=== PATIENT | female | born 1995 | race Caucasian/White ===

== ENCOUNTER 2021-05-21 21:37 | Emergency (ER) | payer OTHER ==
[~2021-05-21 21:37] MED LIST: ACETAMINOPHEN500 M1 PO; AMOXICILLIN500 MG PO; BUPRENORPHIN-N1 EACH PO; CLEOCIN300 MG PO; EFFEXOR XR75 MG PO; IBUPROFEN800 MG PO; NEXPLANON68 MG SC; NORCO 5-325 TA1 EACH PO; OXCARBAZEPINE300 MG PO; PHENERGAN12.5 M1 PO
[2021-05-21] MEDS ORDERED: ONDANSETRON ODT4 MG PO (22:03)
== END 2021-05-21 22:08 | disposition home or self-care (01) ==
LOC: FER 21:37
DX: U07.1 COVID-19 (principal); J06.9 Acute upper respiratory infection, unspecified; F17.200 Nicotine dependence, unspecified, uncomplicated
CPT/HCPCS: 99284; U0002

== ENCOUNTER 2021-07-03 21:51 | Emergency (ER) | payer OTHER ==
[~2021-07-03 21:51] MED LIST changes: +ONDANSETRON ODT4 MG PO
[2021-07-04] MEDS ORDERED: BACTROBAN NASAL1 GM (00:11)
== END 2021-07-04 00:35 | disposition home or self-care (01) ==
LOC: FER 21:51
DX: H60.13 Cellulitis of external ear, bilateral (principal); F17.210 Nicotine dependence, cigarettes, uncomplicated
CPT/HCPCS: 99282